=== PATIENT | male | born 1980 | race Caucasian/White ===

== ENCOUNTER 2018-05-24 10:58 | Outpatient (REF) | payer BC, SELFPAY ==
[2018-05-24 20:41] LABS: RBC 0-2 (0-2); WBC 0-2 HPF (0-5)
[2018-05-24 20:42] LABS: Bacteria Negative HPF (Negative); C & S Indicated? No; Casts 3-5 Hyaline LPF (Negative); Crystals Negative HPF (Negative); Epithelial Cells Rare HPF (Negative); Mucus Moderate (Negative); Other Cells Rare Transitional (Negative)
== END 2018-05-24 10:59 ==
LOC: NCHCN 10:58
PROVIDERS: PCP Internal Medicine; Visit Provider Nurse Practitioner Family
DX: R31.9 Hematuria, unspecified (principal)
CPT/HCPCS: 81015

== ENCOUNTER 2018-10-03 15:04 | Outpatient (REF) | payer BC, SELFPAY ==
[2018-10-07 09:06] LABS: HIV-1/2 Ag & Ab Screen Negative (NEGAT)
[2018-10-07 13:36] LABS: Chlamydia Result Negative; GC Result Negative; Specimen Description URINE
== END 2018-10-03 15:24 ==
LOC: NCHCN 15:04
PROVIDERS: PCP Internal Medicine; Visit Provider Registered Nurse
DX: Z11.3 Encounter for screening for infections with a predominantly sexual mode of transmission (principal); Z11.4 Encounter for screening for human immunodeficiency virus [HIV]
CPT/HCPCS: 87389; 87491; 87591

== ENCOUNTER 2018-10-14 21:33 | Outpatient (REF) | payer BC, SELFPAY ==
[2018-10-16 22:32] LABS: C.trach, Misc, Amplified RNA Negative (Negative); N.gonorr, Misc, Amplified RNA Negative (Negative); SOURCE: THROAT
== END 2018-10-14 21:53 ==
LOC: NCHCN 21:33
PROVIDERS: PCP Internal Medicine; Visit Provider Registered Nurse
DX: Z11.3 Encounter for screening for infections with a predominantly sexual mode of transmission (principal)
CPT/HCPCS: 87491; 87591

== ENCOUNTER 2019-02-11 20:10 | Emergency (ER) | payer BC, SELFPAY ==
[2019-02-11 20:30] VITALS: BP 141/87; PULSE 80; RESP 16; TEMP 36.7; O2SAT 98
--- NOTE | 2019-02-11 21:45 | W.ED.GENAD ---
Discharge Plan Disposition Patient Disposition: HOME Condition: Good Discharge Details Chief Complaint: EarProblem Clinical Impression: Bilateral impacted cerumen Primary Care Provider: JUAN LUIS MIRELES ED Provider: Yasir Gross Home Meds and New Rx's Prescriptions: No Action albuterol sulfate [ProAir HFA] 200 PUFF HFA aerosol inhaler 2 puff Inhalation Q4H PRN PRNQty: 1 RF: 0 Discharge Instructions Instructions: Cerumen Impaction (ED) Additional Instructions: Please do not further stick anything into your ear canals as this may worsen your problem. Feel free to return to the emergency department for any new or significant worsening of symptoms otherwise follow-up with your primary care provider as needed for reassessment Stand Alone Forms: Work Release Referrals: JUAN LUIS MIRELES, [employer] [Primary Care Provider] - (As needed for reassessment) Medical Decision Making Patient presenting to the emergency department for chief complaint of hearing loss/plugged ears. Patient states that he has been noticing this for a while but over the past day or so he is attempted to remove earwax with Q-tips. Patient has bilateral cerumen impaction of both ears. wait staff irrigated ears was able to remove some but not all. Was able to use curette and scoop to remove remaining impaction. Patient had full return of hearing and only mild bleeding was noted in the left canal. Patient tolerated procedure well. Patient informed not to stick anything further into his ears. Return precautions discussed. After discussion of diagnosis and plan of care patient has no further needs, questions, or concerns and states clear understanding to return to the emergency department for any worsening symptoms. HPI General Mode of arrival: ambulatory. Date/Time Provider Initiated Documentation: 02/11/19 20:27. Limitations to Documentation: no limitations. Information obtained by: patient. History of Present Illness 39 year old M presents to the emergency department with the chief complaint of hearing loss, Quality is described as other (denies pain), Patient started experiencing this day(s) (1) and it has been constant. No relieving factors improve symptom(s), Patient notes no other symptoms.. Patient did receive the following treatments prior to arrival, none Related Data Home Medications Medication Instructions Recorded Confirmed albuterol sulfate [ProAir HFA] 2 puff INHALATION Q4H PRN PRN #1 11/05/16 02/11/19 inh Previous Rx's Medication Instructions Recorded albuterol sulfate [ProAir HFA] 2 puff INHALATION Q4H PRN PRN #1 11/05/16 inh Allergies Allergy/AdvReac Type Severity Reaction Status Date / Time No Known Allergies Allergy Unverified 02/11/19 20:28 General Stated Complaint: EarProblem WANDA: 5 Review of Systems Constitutional Denies chills and Denies fever(s) ENT Reports as per HPI, Denies vertigo, Denies dizziness, Denies ear discharge and Reports hearing loss Neurologic Denies vertigo and Denies dizziness PFSH Medical History Femur fracture, right (Acute) GERD (gastroesophageal reflux disease) (Chronic) Social History Smoking/Tobacco Use Status: Current every day Alcohol Intake: current Alcohol Intake frequency: holidays/special occasions only Alcohol type: beer Drug use: Never Substance use type: does not use Do you feel safe at home: Yes Do you feel safe in your relationship?: Yes Exam Const General: cooperative, healthy appearing, comfortable and no acute distress Nutritional Appearance: average body habitus Orientation: alert, awake and oriented x3 HENMT Ears: external ears normal and unable to visualize TM bilaterally (Significant cerumen impact) Mouth: moist mucous membranes Resp Effort & Inspection: normal respiratory effort, able to speak in complete sentences and no respiratory distress Neuro General: alert, awake, oriented x3 and moves all extremities Course Vital Signs Temperature 36.7 C 02/11/19 20:30 Pulse 80 02/11/19 20:30 Respiratory Rate 16 02/11/19 20:30 Blood Pressure 141/87 H 02/11/19 20:30 Pulse Oximetry 98 02/11/19 20:30 Temperature 36.7 C 02/11/19 20:30 Temperature Source Temporal Artery Scan 02/11/19 20:30 Pulse 80 02/11/19 20:30 Respiratory Rate 16 02/11/19 20:30 Respiratory Effort 02/11/19 20:30 Blood Pressure 141/87 H 02/11/19 20:30 Blood Pressure Position Sitting 02/11/19 20:30 Pulse Oximetry 98 02/11/19 20:30 Oxygen Delivery Method Room Air 02/11/19 20:30 Oxygen Flow Rate 0 02/11/19 20:30 Procedures Ear Wax Removal Both Ears: Cerumenolytic Used: Cerumenex Results: Re-examined: cerumen removed completely TM Visible: TM(s) erythematous Ear Canal: bleeding Noted Patient Tolerated Procedure: well Complications: bleeding Technique: ear canal irrigated and ear canal curetted
--- NOTE | 2019-02-11 21:52 | ED.GENADUL_ITS ---
Discharge Plan Disposition Patient Disposition: HOME Condition: Good Discharge Details Chief Complaint: EarProblem Clinical Impression: Bilateral impacted cerumen Primary Care Provider: JUAN LUIS MIRELES ED Provider: Yasir Gross Home Meds and New Rx's Prescriptions: No Action albuterol sulfate [ProAir HFA] 200 PUFF HFA aerosol inhaler 2 puff Inhalation Q4H PRN PRNQty: 1 RF: 0 Discharge Instructions Instructions: Cerumen Impaction (ED) Additional Instructions: Please do not further stick anything into your ear canals as this may worsen your problem. Feel free to return to the emergency department for any new or significant worsening of symptoms otherwise follow-up with your primary care provider as needed for reassessment Stand Alone Forms: Work Release Referrals: JUAN LUIS MIRELES, [employer] [Primary Care Provider] - (As needed for reassessment) Medical Decision Making Patient presenting to the emergency department for chief complaint of hearing loss/plugged ears. Patient states that he has been noticing this for a while but over the past day or so he is attempted to remove earwax with Q-tips. Sarai wray has bilateral cerumen impaction of both ears. air liaison and special staff irrigated ears was able to remove some but not all. Was able to use curette and scoop to remove remaining impaction. Patient had full return of hearing and only mild bleeding was noted in the left canal. Patient tolerated procedure well. Patient informed not to stick anything further into his ears. Return precautions discussed. After discussion of diagnosis and plan of care patient has no further needs, questions, or concerns and states clear understanding to return to the emergency department for any worsening symptoms. HPI General Mode of arrival: ambulatory . Date/Time Provider Initiated Documentation: 02/11/19 20:27 . Limitations to Documentation: no limitations . Information obtained by: patient . History of Present Illness 39 year old M presents to the emergency department with the chief complaint of hearing loss, Quality is described as other (denies pain), Patient started experiencing this day(s) (1) and it has been constant. No relieving factors improve symptom(s), Patient notes no other symptoms.. Patient did receive the following treatments prior to arrival, none Related Data Home Medications Medication Instructions Recorded Confirmed albuterol sulfate [ProAir HFA] 2 puff INHALATION Q4H PRN PRN #1 11/05/16 9 inh Previous Rx's Medication Instructions Recorded albuterol sulfate [ProAir HFA] 2 puff INHALATION Q4H PRN PRN #1 11/05/16 inh Allergies Allergy/AdvReac Type Severity Reaction Status Date / Time No Known Allergies Allergy Unverified 02/11/19 20:28 General Stated Complaint: EarProblem WANDA: 5 Review of Systems Constitutional Denies chills and Denies fever(s) ENT Reports as per HPI, Denies vertigo, Denies dizziness, Denies ear discharge and Reports hearing loss Neurologic Denies vertigo and Denies dizziness PFSH Medical History Femur fracture, right (Acute) GERD (gastroesophageal reflux disease) (Chronic) Social History Smoking/Tobacco Use Status: Current every day Alcohol Intake: current Alcohol Intake frequency: holidays/special occasions only Alcohol type: beer Drug use: Never Substance use type: does not use Do you feel safe at home: Yes Do you feel safe in your relationship?: Yes Exam Const General: cooperative, healthy appearing, comfortable and no acute distress Nutritional Appearance: average body habitus Orientation: alert, awake and oriented x3 HENMT Ears: external ears normal and unable to visualize TM bilaterally (Significant cerumen impact) Mouth: moist mucous membranes Resp Effort & Inspection: normal respiratory effort, able to speak in complete sentences and no respiratory distress Neuro General: alert, awake, oriented x3 and moves all extremities Course Vital Signs Temperature 36.7 C 02/11/19 20:30 Pulse 80 02/11/19 20:30 Respiratory Rate 16 02/11/19 20:30 Blood Pressure 141/87 H 02/11/19 20:30 Pulse Oximetry 98 02/11/19 20:30 Temperature 36.7 C 02/11/19 20:30 Temperature Source Temporal Artery Scan 02/11/19 20:30 Pulse 80 02/11/19 20:30 Respiratory Rate 16 02/11/19 20:30 Respiratory Effort 02/11/19 20:30 Blood Pressure 141/87 H 02/11/19 20:30 Blood Pressure Position Sitting 02/11/19 20:30 Pulse Oximetry 98 02/11/19 20:30 Oxygen Delivery Method Room Air 02/11/19 20:30 Oxygen Flow Rate 0 02/11/19 20:30 Procedures Ear Wax Removal Both Ears: Cerumenolytic Used: Cerumenex Results: Re-examined: cerumen removed completely TM Visible: TM(s) erythematous Ear Canal: bleeding Noted Patient Tolerated Procedure: well Complications: bleeding Technique: ear canal irrigated and ear canal curetted
== END 2019-02-11 22:05 | disposition home or self-care (01) ==
PROVIDERS: Emergency Provider Nurse Practitioner Family; PCP Registered Nurse
DX: H61.23 Impacted cerumen, bilateral (principal)
CPT/HCPCS: 69210

== ENCOUNTER 2019-06-30 10:33 | Emergency (ER) | payer SELFPAY ==
[2019-06-30 10:41] VITALS: BP 135/80; PULSE 72; RESP 16; TEMP 37; O2SAT 99
--- NOTE | 2019-06-30 11:32 | NUR.NOTE ---
1130: advised by access that pt left to be seen by primary care doctor Nursing Note:
--- NOTE | 2019-06-30 14:44 | ED.GENADUL_ITS ---
Discharge Plan Discharge Details Chief Complaint: RespSymp Primary Care Provider: JUAN LUIS MIRELES ED Provider: Monica Rich Home Meds and New Rx's Prescriptions: No Action albuterol sulfate [ProAir HFA] 200 PUFF HFA aerosol inhaler 2 puff Inhalation Q4H PRN PRNQty: 1 RF: 0 Discharge Data Discharge Date/Time-TO BE ENTERED AT DEPARTURE: 06/30/19 11:30 Medical Decision Making Dariusz Ruiz is a 39-year-old man with a history of asthma who presented to the emergency department with 1 week of intermittent productive cough, intermittent subjective fevers, nasal congestion, sore throat, generalized achiness, and intermittent lightheadedness with prolonged standing. On exam patient is very well and nontoxic appearing. No coughing observed in the emergency department. Slight prolonged expiratory phase with otherwise benign cardiopulmonary exam. Benign exam of the oropharynx. Concern for pneumonia, viral URI, possible reactive airway disease component, other. Exam/history is not consistent with meningitis, sepsis, abscess/impending airway compromise, PE, ACS, acute aortic pathology, other acute emergent life-threatening process. Plan for chest x-ray, flu swab, DuoNeb. Rapid strep negative. Patient asking repeatedly how long evaluation will take. He states that he would prefer to get a work note for the rest of the week and leave the emergency department without testing as he does not have time to wait. I discussed with him that I would be happy to provide a work note after we completed a full evaluation. Patient initially stated that he would prefer to leave and see his primary care doctor, but then agreed to have chest x-ray and flu swab performed. I was notified by nursing that patient had left the emergency department after stating that he was leaving to see his primary care doctor prior to having any testing performed. Clinical impression: Cough, sore throat Disposition: Eloped Medical Records Medical records reviewed: Yes I reviewed the patient's medical records. HPI General Mode of arrival: ambulatory . Date/Time Provider Initiated Documentation: 06/30/19 10:42 . Limitations to Documentation: no limitations . Information obtained by: patient, RN notes reviewed and old records reviewed . HPI Narrative: Dariusz Ruiz is a 39-year-old man with a history of asthma presenting to the emergency department with cough. Patient reports that he has had cough productive of yellow sputum for approximately 1 week. He has had nasal congestion, sore throat, intermittent subjective fevers, generalized achiness without focality, and has felt intermittently lightheaded with prolonged standing. He denies any other pain, vomiting, diarrhea, shortness of breath, numbness, weakness, palpitations, fainting. Patient reports that he has been eating less than usual due to somewhat decreased appetite but has been drinking plenty of fluids without issue. No recent travel, no other recent illness. Related Data Home Medications Medication Instructions Recorded Confirmed albuterol sulfate [ProAir HFA] 2 puff INHALATION Q4H PRN PRN #1 11/05/16 06/30/19 inh Previous Rx's Medication Instructions Recorded albuterol sulfate [ProAir HFA] 2 puff INHALATION Q4H PRN PRN #1 11/05/16 inh Allergies Allergy/AdvReac Type Severity Reaction Status Date / Time No Known Allergies Allergy Unverified 06/30/19 10:47 General Stated Complaint: RespSymp WANDA: 3 Review of Systems Review of Systems Narrative: Constitutional: Reports subjective fevers Eyes: denies eye pain ENT: denies facial pain, dental pain, reports nasal congestion, sore throat Cardiovascular: denies chest pain, edema Respiratory: denies SOB, reports cough GI: denies abdominal pain, vomiting, diarrhea : denies flank pain MSK: denies back pain, neck pain, arthralgias, myalgias Skin: denies rash Neuro: denies headaches, numbness, weakness PFSH Medical History Femur fracture, right (Acute) GERD (gastroesophageal reflux disease) (Chronic) Social History Smoking/Tobacco Use Status: Current every day Alcohol Intake: current Alcohol Intake frequency: holidays/special occasions only Alcohol type: beer Drug use: Never Substance use type: does not use Do you feel safe at home: Yes Do you feel safe in your relationship?: Yes Exam Narrative Exam Narrative: Constitutional: well and [id number], pleasant, conversing normally HENT: head atraumatic/normocephalic/normal inspection, mucous membranes moist, oropharynx without erythema or lesion, no exudates, no edema of the pharynx, uvula midline Eyes: conjunctiva normal, sclera normal, pupils 3mm b/l Neck: no stridor, normal painless ROM, trachea midline, no cervical lymphadenopathy Resp: normal work of breathing, LCTAB, slight prolonged expiratory phase Cardio: normal rate, normal rhythm, no murmur appreciated Skin: warm, dry, normal color, no rash Neuro: alert, not altered, grossly non-focal, normal tone Ext: no edema Psych: normal mood, normal affect, normal behavior Course Vital Signs Vital signs: Vital Signs Temperature 37.0 C 06/30/19 10:41 Pulse 72 06/30/19 10:41 Respiratory Rate 16 06/30/19 10:41 Blood Pressure 135/80 06/30/19 10:41 Pulse Oximetry 99 06/30/19 10:41 Temperature 37.0 C 06/30/19 10:41 Temperature Source Skin 06/30/19 10:41 Pulse 72 06/30/19 10:41 Respiratory Rate 16 06/30/19 10:41 Respiratory Effort 06/30/19 10:47 Blood Pressure 135/80 06/30/19 10:41 Blood Pressure Position Sitting 06/30/19 10:41 Pulse Oximetry 99 06/30/19 10:41 Oxygen Delivery Method Room Air 06/30/19 10:41 Oxygen Flow Rate 0 06/30/19 10:41 Pain Level 6 06/30/19 10:41 Lab/Test Results Lab/Test Results: 06/30/19 10:51 Pharynx Streptococcus Screen (SONJA) - Pending POC Strep Test-BRYCE(Rapid) Start: 06/30/19 11:00 Freq: .Rapid Strep Test Status: Active Protocol: Document 06/30/19 11:01 ELIZABETH (Rec: 06/30/19 11:01 ELIZABETH [id number]) Strep test-BRYCE(Rapid)-POC POC-Strep test-BRYCE (Rapid) Negative POC-Strep test-BRYCE (Rapid) Negative
== END 2019-06-30 11:30 ==
LOC: ER 11:05
PROVIDERS: Emergency Provider Student in an Organized Health Care Education/Training Program; PCP Registered Nurse
DX: R05 Cough (principal); Z53.29 Procedure and treatment not carried out because of patient's decision for other reasons
CPT/HCPCS: 87880; 99282; 87081

== ENCOUNTER 2021-10-13 20:19 | Outpatient (REF) | payer MEDICAID, SELFPAY ==
[2021-10-15 15:26] LABS: COVID-19 RT-PCR UVMMC Result Negative (Negative)
== END 2021-10-13 20:20 | disposition home or self-care (01) ==
LOC: NCHCN 20:19
PROVIDERS: PCP Registered Nurse; Visit Provider Internal Medicine
DX: Z20.822 Contact with and (suspected) exposure to COVID-19 (principal); J06.9 Acute upper respiratory infection, unspecified
CPT/HCPCS: U0003